=== PATIENT | female | born 2005 | race Hispanic/Latino ===

== ENCOUNTER → 2025-06-02 14:10 | Outpatient (CLI) | payer OTHER, SELFPAY ==
[2025-06-02 18:18] LABS: Hematocrit 37.1 % (36-46); Hemoglobin 13.0 g/dL (12.0-16.0)
[2025-06-02 18:38] LABS: GTT (PREG) 1 Hour PP 50gm Dose 119 mg/dL (76-139)
== END ==
LOC: LAB 14:12
PROVIDERS: Referring Provider Family Medicine; Visit Provider Family Medicine
DX: Z34.00 Encounter for supervision of normal first pregnancy, unspecified trimester (principal); Z3A.26 26 weeks gestation of pregnancy
CPT/HCPCS: 36415; 82950; 85014; 85018; 86850; 86900; 86901